=== PATIENT | female | born 1965 | race Caucasian/White ===

== ENCOUNTER → 2024-12-22 08:51 | Outpatient (REF) | payer OTHER, SELFPAY | LOC: RAD 08:51 | PROVIDERS: ATTENDING PHYSICIAN Internal Medicine Hematology & Oncology; FAMILY PHYSICIAN Internal Medicine | DX: C50.111 Malignant neoplasm of central portion of right female breast (principal); C50.412 Malignant neoplasm of upper-outer quadrant of left female breast | CPT/HCPCS: 77080 ==